=== PATIENT | male | born 1955 | race Caucasian/White ===

== ENCOUNTER 2017-09-10 13:15 | Inpatient (IN) | payer MEDICAID ==
[~2017-09-10] VITALS: Ht 157.5 cm; Wt 107.5 kg
[~2017-09-10 13:15] MED LIST: ACET-787 PO; BENA40TA PO; CARV12.5 PO; DIGO0.121 PO; FURO-572 PO; GABA600T1 PO; HUM SUBQ; KEP500 PO; LANTUS SC; NUCYNTA PO; TRAZ-289 PO; [UNRECOGNIZED DRUG - CODE] PO
--- NOTE | 2017-09-10 13:15 | NUR ---
PATIENT BIBA TO BED 02
[2017-09-10 13:17] VITALS: BP 113/71
--- NOTE | 2017-09-10 13:17 | NUR ---
62M BIBA FROM HOME C/O SHORTNESS OF BREATH X 2 WEEKS, WORSENING X TODAY; BL LUNG SOUNDS CLEAR, RR EVEN/UNLABORED, EQUAL RISE/FALL OF CHEST NOTED AT THIS TIME; PT SPEAKING IN FULL, CLEAR SENTENCES AT THIS TIME; PT C/O ABDOMINAL PAIN X 4 QUADRANTS, RADIATES TO LOWER BACK, PRESSURE, 9/10 X 3 WEEKS; ABDOMEN LARGE, FIRM, ACTIVE BOWEL SOUNDS X 4 QUADRANTS; PT C/O NAUSEA, BUT STATES NO VOMITING AT THIS TIME; PT C/O DIARRHEA X LAST SUNDAY, BUT STATES "IT STOPPED LAST NIGHT"; PT STATES " I'VE GAINED A LOT OF WEIGHT IN TWO WEEKS"; PT AA&OX4, SKIN IS WARM/DRY/INTACT AT THIS TIME; PT PLACED ON MONITOR, RESTING IN BED WITH HOB ELEVATED AND IN LOWEST POSITION; POSITIONED FOR COMFORT; ER MD MADE AWARE OF STATUS. WILL CONTINUE TO MONITOR.
--- NOTE | 2017-09-10 14:00 | NUR ---
XRAY AT BEDSIDE.
[2017-09-10 14:44] LABS: HEMATOCRIT 37.7 % (36-52); HEMOGLOBIN 12.5 g/dL (12.0-18.0); MEAN CORPUSCULAR HEMOGLOBIN 35 pg (27-31); MEAN CORPUSCULAR HGB CONC 33 g/dL (33-37); MEAN CORPUSCULAR VOLUME 105 fL (80-94); PLATELET COUNT (AUTO) 63 K/uL (140-450); RED CELL DISTRIBUTION WIDTH 14.3 % (11.6-13.7); WHITE BLOOD COUNT (AUTO) 3.3 K/uL (4.8-10.8)
[2017-09-10 15:00] LABS: ALBUMIN 2.8 g/dL (3.4-5.0); ANION GAP 11.3 (8-16); CARBON DIOXIDE 26.7 mmol/L (21-32); CREATININE 0.8 mg/dL (0.7-1.3); TOTAL BILIRUBIN 1.8 mg/dL (0.0-1.0)
[2017-09-10 15:15] LABS: LYMPHOCYTES % (MANUAL) 28 % (20-46); MONOCYTES % (MANUAL) 11 % (5-12)
--- NOTE | 2017-09-10 15:19 | NUR ---
PT APPEARS TO BE RESTING COMFORTABLY IN BED; RR EVEN/UNLABORED; POSITIONED FOR COMFORT; WILL CONTINUE TO MONITOR.
[2017-09-10] MEDS ORDERED: FUROSEMIDE 40 MG/4 ML VIAL IVP ONE (15:40)
[2017-09-10] MEDS ORDERED: MORPHINE SULFATE 4 MG/ML SYR IVP ONE (15:40)
[2017-09-10 15:47] LABS: PROTHROMBIN TIME 12.4 secs (10.8-13.4)
[2017-09-10] MEDS ORDERED: LYR75 PO (15:55)
[2017-09-10] MEDS ORDERED: SPIR25TA PO (15:55)
[2017-09-10] MEDS ORDERED: OMEP20TC12 PO (15:55)
[2017-09-10] MEDS ORDERED: ACETAMINOPHEN 325 MG TAB PO PRN (16:10)
[2017-09-10] MEDS ORDERED: ALBUTEROL SULFATE/IPRATROPIU 3 ML SOL IH PRN (16:10)
[2017-09-10] MEDS ORDERED: DEXTROSE 50% 50 ML SYR IVP PRN (16:25)
--- NOTE | 2017-09-10 16:43 | NUR ---
US AT BEDSIDE.
[2017-09-10 16:47] LABS: CHOL/HDL RATIO 2.3 (1-4.5); FREE T4 (FREE THYROXINE) 1.55 ng/dL (0.76-1.46); THYROID STIMULATING HORMONE 2.62 uIU/mL (0.34-3.74)
[2017-09-10] MEDS ORDERED: GABAPENTIN 600 MG PO SCH (17:00)
[2017-09-10] MEDS ORDERED: FUROSEMIDE 20 MG/2 ML VIAL IVP SCH (17:00)
--- NOTE | 2017-09-10 17:00 | NUR ---
Patient will be admitted to care of DR. NESBITT. Admited to TELEMETRY. Will go to room 119B. Belongings list completed. Report to NII HERNANDEZ AT BEDSIDE.
[2017-09-10] MEDS ORDERED: METOPROLOL SUCCINATE 50 MG TABER PO SCH (17:06)
[2017-09-10] MEDS ORDERED: GABAPENTIN 300 MG CAP PO SCH (17:08)
[2017-09-10 17:12] VITALS: BP 170/88
--- NOTE | 2017-09-10 17:12 | NUR ---
RECEIVED PATIENT FROM EMERGENCY ROOM NURSE. PATIENT IS ALERT AND ORIENTED X4. PATIENT SHOWS NO SIGNS OF RESPIRATORY DISTRESS OR RESPIRATORY DEPRESSION. PATIENT IS ON 2L VIA NC. PATIENT O2 SATURATION IS AT 96%. PATIENT BLOOD PRESSURE SYSTOLIC IS 170. WILL RECHECK AND NOTIFY DOCTOR. GAVE PATIENT CALL LIGHT AND PLACED BED IN LOWEST POSITION. APPROPRIATE SIGNS PLACED OUTSIDE PATIENTS DOOR AND WRISTBAND APPLIED. WILL CONTINUE TO MONITOR PATIENT.
--- NOTE | 2017-09-10 18:00 | NUR ---
PATIENT IS RESTING AT THIS TIME. NO SIGNS OF RESPIRATORY DISTRESS OR RESPIRATORY DEPRESSION. WILL CONTINUE TO MONITOR PATIENT.
[2017-09-10 18:03] LABS: APPEARANCE,URINE CLEAR (CLEAR); BILIRUBIN,URINE NEGATIVE (NEGATIVE); BLOOD, URINE NEGATIVE (NEGATIVE); COLOR,URINE YELLOW (YELLOW); LEUKOCYTE ESTERASE ,URINE NEGATIVE (NEGATIVE); NITRITE, URINE NEGATIVE (NEGATIVE); PH,URINE 5.5 (5.0-9.0); UGLUCOSE NEGATIVE (NEGATIVE)
[2017-09-10] MEDS ORDERED: SPIRONOLACTONE 50 MG TAB PO SCH (18:03)
[2017-09-10] MEDS ORDERED: FUROSEMIDE 40 MG TAB PO SCH (18:05)
[2017-09-10 18:10] LABS: BARBITURATE, URINE NEG. ng/ml (NEG <=200); BENZODIAZEPINE, URINE NEG. ng/mL (NEG <=200); CANNABINOID, URINE NEG. ng/mL (NEG <=50); COCAINE, URINE NEG. ng/mL (NEG <=300); OPIATE, URINE POS. ng/mL (NEG <=2000); PHENCYCLIDINE SCREEN,URINE NEG. ng/mL (NEG <=25)
[2017-09-10] MEDS ORDERED: ALBUTEROL SULFATE/IPRATROPIU 3 ML SOL IH SCH (19:00)
--- NOTE | 2017-09-10 19:15 | NUR ---
GAVE REPORT TO NIGHTSHIFT NURSE AT BEDSIDE. PATIENT IS IN STABLE CONDITION.
--- NOTE | 2017-09-10 19:18 | NUR ---
RECEIVED PT AWAKE ON BED, COMPLAINING OF ABDOMINAL PAIN RADIATING TO BACK, ABDOMEN DISTENDED BUT SOFT, PT REQUESTING FOR MORPHINE, OFFERED NORCO BUT PT SAID ITS NO HELPING WITH THE PAIN, VITAL SIGNS TAKEN, BP ELEVATED, NO SOB NOTED, DR MATIAS MADE AWARE OF PT REQUEST FOR PAIN MEDICATION AND ELEVATED BP, WILL SEE PT, PLAN OF CARE DISCUSSED, SAFETY MEASURES IN PLACE, CALL LIGHT WITHIN REACH.
[2017-09-10 20:00] VITALS: BP 172/92
[2017-09-10] MEDS ORDERED: MORPHINE SULFATE 2 MG/ML SYR ONE (20:14)
--- NOTE | 2017-09-10 20:20 | NUR ---
DR MATIAS TALKED TO PT, MEDICATED PRN WITH MORPHINE IVP X1 DOSE ORDERED, BLOOD SUGAR CHECKED WITH 157 RESULT, COVERAGE WILL BE GIVEN, VENOUS AND DOPPLER BLE ULTRASOUND BEING DONE AT BEDSIDE AT THIS TIME, ALL NEEDS ATTENDED.
[2017-09-10] MEDS: BLOOD GLUCOSE MONITORING 1 DEV DEV FS SCH (20:21)
[2017-09-10] MEDS ORDERED: SODIUM CHLORIDE 1 GM TAB PO SCH (21:00)
[2017-09-10] MEDS ORDERED: SPIRONOLACTONE 25 MG TAB PO SCH (21:00)
[2017-09-10] MEDS: traZODone 50 MG TAB PO SCH (21:19)
[2017-09-10] MEDS: CARVEDILOL 12.5 MG TAB PO SCH (21:19)
[2017-09-10] MEDS: levETIRAcetam 500 MG TAB PO SCH (21:19)
[2017-09-10] MEDS: INSULIN LISPRO SLIDING SCALE 100 UNITS/ML VIAL SUBQ PRN (21:24)
[2017-09-10] MEDS ORDERED: MORPHINE SULFATE 2 MG/ML SYR IVP SCH (21:30)
[2017-09-11] VITALS: BP 137/63
--- NOTE | 2017-09-11 | NUR ---
PT SLEEPING, EASILY AROUSABLE, VITAL SIGNS STABLE, DENIES PAIN AT THIS TIME, VOIDING FREELY PER URINAL, CONTINUE TO MONITOR CLOSELY.
[2017-09-11] MEDS: MORPHINE SULFATE 2 MG/ML SYR IVP PRN ×4 (02:16→23:10)
--- NOTE | 2017-09-11 02:18 | NUR ---
COMPLAINING OF ABDOMINAL PAIN, OFFERED NORCO BUT PT REFUSED SAYING 03/04 PAIN AND NORCO WILL NOT RELIEVE IT, TALKED TO DR MATIAS, MORPHINE IVP GIVEN X1 DOSE ORDERED, MONITORED CLOSELY.
[2017-09-11 04:00] VITALS: BP 142/70
--- NOTE | 2017-09-11 05:40 | NUR ---
AM LABS DRAWN, BLOOD SUGAR CHECKED WITH 92 RESULT, NO DISTRESS NOTED, MONITORED CLOSELY.
[2017-09-11 06:12] LABS: HEMATOCRIT 35.7 % (36-52); HEMOGLOBIN 11.9 g/dL (12.0-18.0); MEAN CORPUSCULAR HEMOGLOBIN 35 pg (27-31); MEAN CORPUSCULAR HGB CONC 33 g/dL (33-37); MEAN CORPUSCULAR VOLUME 105 fL (80-94); PLATELET COUNT (AUTO) 47 K/uL (140-450); RED BLOOD CELL COUNT(AUTO) 3.39 MIL/uL (4.20-6.10)
[2017-09-11 06:20] LABS: T3 UPTAKE 30 % (24-39)
[2017-09-11] MEDS ORDERED: NON-FORMULARY ITEM (Omeprazole (Omeprazole) 20 MG) PO SCH (06:30)
[2017-09-11] MEDS: BLOOD GLUCOSE MONITORING 1 DEV DEV FS SCH ×4 (06:33→20:47)
[2017-09-11] MEDS ORDERED: LACTULOSE 20 GM/30 ML UDC PO ONE (06:35)
--- NOTE | 2017-09-11 06:45 | NUR ---
DUE LACTULOSE GIVEN, MADE AWARE FOR ULTRASOUND OF ABDOMEN TODAY, INSTRUCTED TO HOLD BREAKFAST UNTIL ITS DONE, WANT SCD'S TO BE APPLIED LATER, WILL ENDORSE, MONITORED CLOSELY.
[2017-09-11 06:55] LABS: MAGNESIUM 1.2 mg/dL (1.8-2.4); PHOSPHORUS 3.3 mg/dL (2.5-4.9)
--- NOTE | 2017-09-11 07:12 | NUR ---
PT SLEEPING, NO SIGNS OF DISTRESS, REPORT GIVEN TO NII ANDERSON FOR CONTINUITY OF CARE.
--- NOTE | 2017-09-11 07:13 | NUR ---
RECEIVED REPORT FROM MOVIE WRITER NURSE NICOLLE AT BEDSIDE FOR CONTINUITY OF CARE. PT IS AWAKE AND ORIENTED. INTRODUCED SELF AND UPDATED BOARD. LUNG SOUNDS CLEAR ON AUSCULTATION, ON RA. NO SOB. O2 SAT 95%. SKIN INTACT. IV TO L WRIST 20G. SL. SITE INTACT. ABD IS DISTENDED. BOWEL SOUNDS PRESENT. PT STATED HE HAD A BM THE DAY BEFORE YESTERDAY. URINAL AT BEDSIDE. BED IN LOW POSITION, WHEELS, LOCKED, CALL LIGHT WITHIN REACH. WILL CONTINUE TO MONITOR.
[2017-09-11 07:17] LABS: ANION GAP 12.3 (8-16); CARBON DIOXIDE 25.8 mmol/L (21-32); CREATININE 0.8 mg/dL (0.7-1.3); POTASSIUM 4.1 mmol/L (3.5-5.1)
[2017-09-11 08:00] VITALS: BP 112/67
--- NOTE | 2017-09-11 08:46 | NUR ---
CM NOTE INITIAL REVIEW FAXED TO [facility] [phone] PH# [phone] AND TO [facility] [phone] MARCOS PH# [phone]
[2017-09-11 08:50] LABS: EOSINOPHILS % (MANUAL) 7 % (0-4); LYMPHOCYTES % (MANUAL) 25 % (20-46); MONOCYTES % (MANUAL) 11 % (5-12)
[2017-09-11] MEDS: HYDROcodone/APAP 10/325 MG 1 TAB TAB PO PRN ×2 (08:52→16:52)
[2017-09-11] MEDS ORDERED: DOCUSATE 100 MG/10 ML UDC GT SCH (09:00)
[2017-09-11] MEDS ORDERED: traZODone 50 MG TAB PO SCH (09:00)
[2017-09-11] MEDS ORDERED: BENAZEPRIL HCL 40 MG PO SCH (09:00)
[2017-09-11] MEDS: INSULIN LANTUS 100 UNITS/ML 10 ML VIAL SUBQ SCH (09:00)
[2017-09-11] MEDS ORDERED: NON-FORMULARY ITEM (Trazodone HCl 50 MG) PO SCH (09:00)
[2017-09-11] MEDS ORDERED: METOPROLOL SUCCINATE 50 MG TABER PO SCH (09:00)
[2017-09-11 09:39] LABS: HEPATITIS A ANTIBODY IGM Negative (Negative); HEPATITIS B CORE AB TOTAL Negative (Negative); HEPATITIS B SURFACE ANTIBODY Non Reactive (.); HEPATITIS B SURFACE ANTIGEN Negative (Negative)
[2017-09-11] MEDS: GABAPENTIN 300 MG CAP PO SCH ×3 (10:03→17:16)
[2017-09-11] MEDS: SPIRONOLACTONE 50 MG TAB PO SCH (10:03)
[2017-09-11] MEDS: CARVEDILOL 12.5 MG TAB PO SCH ×2 (10:04→20:31)
[2017-09-11] MEDS: PANTOPRAZOLE 40 MG TABEC PO SCH (10:04)
[2017-09-11] MEDS: levETIRAcetam 500 MG TAB PO SCH ×2 (10:04→20:31)
[2017-09-11] MEDS: BENAZEPRIL 20 MG TAB PO SCH (10:04)
[2017-09-11] MEDS: DIGOXIN 0.125 MG TAB PO SCH (10:05)
--- NOTE | 2017-09-11 10:11 | NUR ---
ADMINISTERED SCHEDULED MED. ADMINISTERED 1/2 DOSE OF BENAZEPRIL PILL WASTED. NON ADMINISTERED LANTUS D/T BLOOD GLUCOSE 92. PT TOLERATED MEDS WELL.
[2017-09-11] MEDS ORDERED: MAG SULF 2000 MG/WATER PREMIX 50 ML IV SCH (10:26)
[2017-09-11 12:00] VITALS: BP 101/62
[2017-09-11] MEDS ORDERED: LIDOCAINE MPF 1% - **ER/OR** 10 MG/ML VIAL INJ SCH (12:20)
[2017-09-11] MEDS ORDERED: LORazepam 2 MG/ML VIAL IVP SCH (12:20)
--- NOTE | 2017-09-11 12:49 | NUR ---
PT IS RESTING COMFORTABLY IN BED RIGHT NOW. AWARE FOR PLAN FOR PARACENTESIS TODAY. NO COMPLAINTS AT THIS TIME. WILL CONTINUE TO MONITOR.
--- NOTE | 2017-09-11 14:34 | NUR ---
09/11/2017 RD INITIAL ASSESSMENT COMPLETED PLEASE REFER TO NUTRITION ASSESSMENT UNDER CARE ACTIVITY FOR ESTIMATED NUTRITIONAL NEEDS. CONTINUE 60 GMS CCHO DIET MEDICALLY NECESSARY. ENCOURAGE INCREASED PO INTAKE TOLERATED PROVIDED NUTRITION EDUCATION ON CIRRHOSIS. RD TO FOLLOW-UP IN 3-5 DAYS PATIENT IS MODERATE RISK. EZEQUIEL BEAUCHAMP RD
[2017-09-11 16:00] VITALS: BP 131/67
[2017-09-11] MEDS ORDERED: FUROSEMIDE 40 MG TAB PO SCH (17:08)
--- NOTE | 2017-09-11 18:01 | NUR ---
PT STATED HE CANNOT TOLERATE FOOD ON DINNER TRAY. STATED HE CAN ONLY EAT FOOD LIKE MASHED POTATOES AND COTTAGE CHEESE. REPORTED TO DR. PRIEST. CHANGED DIET TO PUREE FOOD CONSISTENCY.
--- NOTE | 2017-09-11 19:15 | NUR ---
PT REPORT GIVEN TO NIGHTSHIFT NURSE AT BEDSIDE. NO S/S OF DISTRESS.
--- NOTE | 2017-09-11 19:16 | NUR ---
RECEIVED PT SLEEPING, EASILY AROUSABLE, DENIES ANY PAIN, ABDOMEN DISTENDED BUT SOFT, POSSIBLE PLAN FOR PARACENTESIS TOMORROW, PLAN OF CARE DISCUSSED, SAFETY MEASURES IN PLACE, CALL LIGHT WITHIN REACH.
[2017-09-11] MEDS: traZODone 50 MG TAB PO SCH (20:32)
--- NOTE | 2017-09-11 20:35 | NUR ---
PT SLEEPING, EASILY AROUSABLE, DENIES ANY PAIN, BLOOD SUGAR CHECKED WITH 178 RESULT, COVERAGE GIVEN, DUE MEDS GIVEN WITH EDUCATION PROVIDED, VOIDING FREELY USING THE URINAL, ALL NEEDS ATTENDED.
[2017-09-11] MEDS: INSULIN LISPRO SLIDING SCALE 100 UNITS/ML VIAL SUBQ PRN (20:36)
[2017-09-12] VITALS: BP 138/71
--- NOTE | 2017-09-12 | NUR ---
PT SLEEPING, AROUSABLE TO TOUCH, VITAL SIGNS STABLE, PAIN RELIEF OBTAINED FROM MORPHINE IVP GIVEN EARLIER, NO SOB NOTED, CONTINUE TO MONITOR CLOSELY.
--- NOTE | 2017-09-12 03:30 | NUR ---
ROUNDS MADE, PT SEEN SLEEPING, NO SIGNS OF DISTRESS, MONITORED CLOSELY.
[2017-09-12] MEDS: MORPHINE SULFATE 2 MG/ML SYR IVP PRN ×4 (05:08→23:32)
--- NOTE | 2017-09-12 05:10 | NUR ---
PT COMPLAINING OF ABDOMINAL PAIN, BP-145/92, HR-65, MEDICATED PRN WITH MORPHINE IVP, MONITORED CLOSELY.
--- NOTE | 2017-09-12 05:50 | NUR ---
BLOOD SUGAR CHECKED WITH 123 RESULT, NO COVERAGE NEEDED, NO DISTRESS NOTED, PT WENT BACK TO SLEEP, MONITORED CLOSELY.
[2017-09-12] MEDS: BLOOD GLUCOSE MONITORING 1 DEV DEV FS SCH ×4 (06:41→20:56)
[2017-09-12] MEDS: HYDROcodone/APAP 10/325 MG 1 TAB TAB PO PRN ×3 (07:15→21:25)
--- NOTE | 2017-09-12 07:28 | NUR ---
PT AWAKE, NO DISTRESS NOTED, REPORT GIVEN TO NII MOSHER FOR CONTINUITY OF CARE.
--- NOTE | 2017-09-12 07:29 | NUR ---
RECEIVED REPORT FROM LACROSSE PLAYER NURSE AT BEDSIDE FOR CONTINUITY OF CARE. PATIENT IN BED AWAKE. NO ACUTE DISTRESS NOTED. LEFT WRIST 20G.WILL CONT TO MONITOR.
[2017-09-12 07:32] LABS: ANION GAP 11.2 (8-16); CARBON DIOXIDE 27.9 mmol/L (21-32); CREATININE 0.8 mg/dL (0.7-1.3); POTASSIUM 4.1 mmol/L (3.5-5.1)
[2017-09-12 08:00] VITALS: BP 114/60
[2017-09-12 08:00] LABS: HEMATOCRIT 35.7 % (36-52); MEAN CORPUSCULAR HEMOGLOBIN 35 pg (27-31); MEAN CORPUSCULAR HGB CONC 34 g/dL (33-37); MEAN CORPUSCULAR VOLUME 105 fL (80-94); RED BLOOD CELL COUNT(AUTO) 3.41 MIL/uL (4.20-6.10); RED CELL DISTRIBUTION WIDTH 13.7 % (11.6-13.7); WHITE BLOOD COUNT (AUTO) 2.5 K/uL (4.8-10.8)
--- NOTE | 2017-09-12 08:00 | NUR ---
INITIAL ASSESSMENT PERFORMED. PT ALERT AND ABLE TO MAKE NEEDS KNOWN.NO ACUTE DISTRESS NOTED. RESP EVEN AND UNLABORED. LUNG SOUNDS CLEAR. BOWEL SOUNDS ACTIVE X4 QUADS. VSS. DENIES PAIN. CONT WITH LEFT WRIST 20G SL. PATENT AND INTACT. SKIN INTACT.DISCUSSED PLAN OF CARE WITH PATIENT. VERBALIZED UNDERSTANDING AND AGREEMENT. PATIENT WITH ROUND FIRM ABDOMEN. PATIENT VERBALIZED FEELING PRESSURE FROM FLUID. INFORMED PATIENT PARACENTESIS PENDING PLATELET COUNT TODAY. CALL LIGHT WITHIN REACH. WILL CONT TO MONITOR.
[2017-09-12 08:11] LABS: PLATELET COUNT (AUTO) 38 K/uL (140-450)
[2017-09-12] MEDS: INSULIN LANTUS 100 UNITS/ML 10 ML VIAL SUBQ SCH (09:00)
--- NOTE | 2017-09-12 09:01 | NUR ---
CM NOTE CONCURRENT REVIEW FAXED TO [facility] [phone] PH# [phone] AND TO [facility] [phone] MARCOS PH# [phone]
[2017-09-12] MEDS: SPIRONOLACTONE 50 MG TAB PO SCH (09:13)
[2017-09-12] MEDS: CARVEDILOL 12.5 MG TAB PO SCH ×2 (09:14→20:47)
[2017-09-12] MEDS: FUROSEMIDE 40 MG TAB PO SCH (09:14)
[2017-09-12] MEDS: levETIRAcetam 500 MG TAB PO SCH ×2 (09:14→20:47)
--- NOTE | 2017-09-12 09:14 | NUR ---
ADMINISTERED SCHEDULED MEDICATIONS ORDERED. HELD COLACE PER PATIENT REQUEST. PT VERBALIZED HE HAS BEEN HAVING DIARRHEA D/T OTHER MEDICATIONS BEING GIVEN. WILL CONT TO MONITOR PT.
[2017-09-12] MEDS: DIGOXIN 0.125 MG TAB PO SCH (09:15)
[2017-09-12] MEDS: GABAPENTIN 300 MG CAP PO SCH ×3 (09:15→14:28)
[2017-09-12] MEDS: BENAZEPRIL 20 MG TAB PO SCH (09:15)
[2017-09-12] MEDS: PANTOPRAZOLE 40 MG TABEC PO SCH (09:16)
[2017-09-12] MEDS: DOCUSATE 100 MG/10 ML UDC PO SCH (09:18)
--- NOTE | 2017-09-12 09:53 | NUR ---
ADMINISTERED MAG RIDER ORDERED. PATIENT TOLERATING WELL.WILL CONT TO MONITOR. VERIFIED DOSE.
[2017-09-12] MEDS ORDERED: MAG SULF 2000 MG/WATER PREMIX 100 ML IV SCH (10:00)
[2017-09-12 10:13] LABS: BASOPHILS % (MANUAL) 1 % (0-2); EOSINOPHILS % (MANUAL) 2 % (0-4); LYMPHOCYTES % (MANUAL) 28 % (20-46); MONOCYTES % (MANUAL) 10 % (5-12)
--- NOTE | 2017-09-12 11:06 | NUR ---
ADMINISTERED MORPHINE IVP ORDERED FOR SEVERE ABD PAIN/PRESSURE RELATED TO ASCITES.PT TOLERATED WELL. WILL CONT TO MONITOR PT.
[2017-09-12] MEDS ORDERED: LACTULOSE 20 GM/30 ML UDC PO SCH (11:16)
[2017-09-12] MEDS ORDERED: DEXAMETHASONE 4 MG TAB PO SCH ×2 (11:17→13:57)
--- NOTE | 2017-09-12 13:00 | NUR ---
PATIENT WITH WITH VISITOR AT BEDSIDE. LACTULOSE ADMINISTERED ORDERED. PT IN GOOD SPIRITS. CALL LIGHT WITHIN REACH WILL CONT TO MONITOR PT.
[2017-09-12] MEDS: INSULIN LISPRO SLIDING SCALE 100 UNITS/ML VIAL SUBQ PRN ×3 (13:14→21:13)
[2017-09-12] MEDS ORDERED: LIDOCAINE 1% 500 MG/50 ML VIAL INJ SCH (13:45)
[2017-09-12] MEDS ORDERED: LORazepam 2 MG/ML VIAL IVP SCH (13:45)
--- NOTE | 2017-09-12 14:00 | NUR ---
PARACENTESIS PERFORMED BY DR PRIEST AT BEDSIDE. PATIENT TOLERATED WELL. ATIVAN GIVEN PRIOR TO PROCEDURE. LIDOCAINE ALSO ADMINISTER BY DR PRIEST AT BEDSIDE. 4 CANISTERS DRAINED FROM PATIENT. CANISTERS TAKEN TO LAB FOR GLUCOSE, PROTEIN,LDH, AMYLASE, AND ALBUMIN FROM BODY FLUID. PT WITH DRY DRSG TO SITE. PATIENT VERBALIZED SOME RELIEF.
[2017-09-12 15:12] LABS: PROTHROMBIN TIME 12.8 secs (10.8-13.4)
[2017-09-12 16:00] VITALS: BP 171/75
--- NOTE | 2017-09-12 16:30 | NUR ---
PATIENT IN BED WITH EYES CLOSED. EASILY WOKEN. PATIENT ALERT AND ABLE TO VERBALIZE NEEDS. NO ACUTE DISTRESS NOTED. CALL LIGHT WITHIN REACH. WILL CONT TO MONITOR. VS GATHERED.
--- NOTE | 2017-09-12 17:16 | NUR ---
ADMINISTERED MORPHINE ORDERED PATIENT TOLERATED WELL. PATIENT IN BED RESTING AFTER PARACENTESIS. CALL LIGHT WITHIN REACH. WILL CONT TO MONITOR.
--- NOTE | 2017-09-12 19:16 | NUR ---
ENDORSED REPORT TO WAITANGI TRIBUNAL MEMBER NURSE AT BEDSIDE FOR CONTINUITY OF CARE. PATIENT STABLE.
--- NOTE | 2017-09-12 19:20 | NUR ---
RECEIVED REPORT FROM NIGHT RN. PT RESTING IN BED. AAOX4. NO S/S OF ACUTE DISTRESS. PT DENIES PAIN. IV SITE PATENT AND INTACT. CALL LIGHT WITHIN REACH. SAFETY MEASURES ENSURED. WILL CONTINUE TO MONITOR.
[2017-09-12 19:58] LABS: GLUCOSE,BODY FLUID 187 mg/dL
[2017-09-12 20:12] LABS: SPECIMENTYPE,BODY FLUID ASCITES
[2017-09-12 20:13] LABS: APPEARANCE,SPUN,BODY FLUID CLEAR (CLEAR); APPEARANCE,UNSPUN,BODY FLUID CLEAR (CLEAR); COLOR,BODY FLUID LT YELLOW (LT YELLOW); RBC, BODY FLUID 49 /cu. mm.; TOTAL VOLUME,BODY FLUID 4350 mL; WBC, BODY FLUID 4 /cu. mm.
[2017-09-12] MEDS: LACTULOSE 20 GM/30 ML UDC PO SCH (20:46)
[2017-09-12] MEDS: traZODone 50 MG TAB PO SCH (20:47)
[2017-09-12] MEDS ORDERED: SPIRONOLACTONE 50 MG TAB PO SCH (21:00)
[2017-09-12] MEDS ORDERED: FUROSEMIDE 40 MG TAB PO SCH (21:00)
[2017-09-12] MEDS ORDERED: HYDROcodone/APAP 10/325 MG 1 TAB TAB ONE (21:22)
--- NOTE | 2017-09-12 23:37 | NUR ---
PT STATES PAIN 8/10 TO LOWER BACK. MEDICATED ORDERED. NO S/S OF ACUTE DISTRESS. CALL LIGHT WITHIN REACH. SAFETY MEASURES ENSURED. WILL CONTINUE TO MONITOR.
[2017-09-13] VITALS: BP 138/72
[2017-09-13] MEDS: HYDROcodone/APAP 10/325 MG 1 TAB TAB PO PRN ×3 (05:12→17:49)
[2017-09-13] MEDS: BLOOD GLUCOSE MONITORING 1 DEV DEV FS SCH ×4 (05:20→21:32)
[2017-09-13] MEDS: INSULIN LISPRO SLIDING SCALE 100 UNITS/ML VIAL SUBQ PRN ×4 (05:38→21:35)
--- NOTE | 2017-09-13 07:27 | NUR ---
ENDORSED PLAN OF CARE TO DAY RN. PT REMAINS STABLE.
--- NOTE | 2017-09-13 07:30 | NUR ---
RECEIVED PT REPORT FROM CARPENTRY FOREMAN RN. PT AAOX4. NO S/S OF ACUTE DISTRESS. PT C/O BACK PAIN, WILL MEDICATE. IV SITE PATENT AND INTACT, SL. UPDATED BOARD, CALL LIGHT WITHIN REACH. SAFETY MEASURES ENSURED. WILL CONTINUE TO MONITOR.
[2017-09-13 07:46] LABS: BASOPHILS # (AUTO) 0.1 K/uL (0.00-0.22); BASOPHILS % (AUTO) 2.3 % (0.0-2.0); EOSINOPHILS % (AUTO) 0.7 % (0.0-4.0); HEMATOCRIT 36.8 % (36-52); HEMOGLOBIN 12.6 g/dL (12.0-18.0); LYMPHOCYTES # (AUTO) 0.2 K/uL (2.0-11.5); LYMPHOCYTES % (AUTO) 6.9 % (20.5-51.1); MEAN CORPUSCULAR HEMOGLOBIN 36 pg (27-31); MEAN CORPUSCULAR HGB CONC 34 g/dL (33-37); MEAN CORPUSCULAR VOLUME 103 fL (80-94); MONOCYTES # (AUTO) 0.1 K/uL (0.8-1.0); MONOCYTES % (AUTO) 1.8 % (1.7-9.3); NEUTROPHILS # (AUTO) 2.9 K/uL (1.8-7.7); NEUTROPHILS % (AUTO) 88.3 % (42.2-75.2); PLATELET COUNT (AUTO) 43 K/uL (140-450); RED BLOOD CELL COUNT(AUTO) 3.56 MIL/uL (4.20-6.10); RED CELL DISTRIBUTION WIDTH 13.6 % (11.6-13.7); WHITE BLOOD COUNT (AUTO) 3.3 K/uL (4.8-10.8)
[2017-09-13 08:00] VITALS: BP 143/79
[2017-09-13 08:10] LABS: ANION GAP 14.2 (8-16); CARBON DIOXIDE 25.2 mmol/L (21-32); CREATININE 0.9 mg/dL (0.7-1.3); POTASSIUM 4.4 mmol/L (3.5-5.1)
--- NOTE | 2017-09-13 08:50 | NUR ---
PT HAS CLEAR YELLOW FLUID LEAKING FROM PARACENTESIS PROCEDURE SITE ON THE LEFT ABD. NOTIFIED DR CEM DR ORDERED TO APPLIED NEW DRESSING AND APPLIED PRESSURE.
[2017-09-13] MEDS: GABAPENTIN 300 MG CAP PO SCH ×3 (08:53→16:29)
[2017-09-13] MEDS: BENAZEPRIL 20 MG TAB PO SCH (08:53)
[2017-09-13] MEDS: FUROSEMIDE 40 MG TAB PO SCH (08:54)
[2017-09-13] MEDS: levETIRAcetam 500 MG TAB PO SCH ×2 (08:54→20:23)
[2017-09-13] MEDS: DIGOXIN 0.125 MG TAB PO SCH (08:54)
[2017-09-13] MEDS: SPIRONOLACTONE 50 MG TAB PO SCH (08:55)
[2017-09-13] MEDS: PANTOPRAZOLE 40 MG TABEC PO SCH (08:55)
[2017-09-13] MEDS: CARVEDILOL 12.5 MG TAB PO SCH ×2 (08:56→20:22)
[2017-09-13] MEDS: LACTULOSE 20 GM/30 ML UDC PO SCH ×2 (08:59→20:22)
[2017-09-13] MEDS ORDERED: DEXAMETHASONE 4 MG TAB PO SCH (09:00)
[2017-09-13] MEDS: DOCUSATE 100 MG/10 ML UDC PO SCH (09:01)
[2017-09-13] MEDS: MORPHINE SULFATE 2 MG/ML SYR IVP PRN ×2 (09:09→16:01)
--- NOTE | 2017-09-13 09:15 | NUR ---
RINSED PT'S PARACENTESIS SITE ON THE LEFT ABD WITH NS AND PATTED DRY, COVERED WITH THREE 2X2 GAUZE AND COVERED WITH ISLAND DRESSING.
[2017-09-13] MEDS: INSULIN LANTUS 100 UNITS/ML 10 ML VIAL SUBQ SCH (09:18)
[2017-09-13 09:23] LABS: LDH,BODY FLUID 46 U/L
[2017-09-13] MEDS ORDERED: DEXAMETHASONE 0.5 MG/5 ML ORASYR PO SCH (10:05)
--- NOTE | 2017-09-13 10:20 | NUR ---
PT AMB WITH PHYSICAL THERAPY. PER PHYSICAL THERAPIST, PT IS ABLE TO AMB TO THE DOUBLE DOOR WITH ASSIST.
[2017-09-13] MEDS ORDERED: MAG SULF 2000 MG/WATER PREMIX 50 ML IV SCH (10:30)
--- NOTE | 2017-09-13 11:38 | NUR ---
CM NOTE CONCURRENT REVIEW FAXED TO [facility] [phone] PH# [phone] AND TO [facility] [phone] MARCOS PH# [phone]
[2017-09-13] MEDS: DEXAMETHASONE 4 MG TAB PO SCH (13:56)
[2017-09-13 14:02] LABS: PROTHROMBIN TIME 13.3 secs (10.8-13.4)
[2017-09-13 14:10] LABS: ALBUMIN 2.6 g/dL (3.4-5.0); TOTAL BILIRUBIN 2.3 mg/dL (0.0-1.0)
--- NOTE | 2017-09-13 14:19 | NUR ---
CM NOTE PER DAPHNIE PENDLETON, SHE SPOKE WITH PATIENT BEDSIDE AND PATIENT IS AGREEABLE TO SNF IF THE DOCTOR WILL SEE THAT HE NEEDS IT AND HE HAS NO PREFERENCE FOR A SPECIFIC SNF BUT WOULD APPRECIATE ONE THAT'S NOT FAR FROM HIS HOME. PER SONALI RODRÍGUEZ PH# [phone] IF THE PATIENT WILL NEED SNF TO SEND TO [facility] OR [facility]. PER SONALI RODRÍGUEZ FOR [facility] AUTH# [id number]. PER CHRIS OF [facility] PH# [phone] THEY ARE UNABLE TO TAKE PATIENT BECAUSE THEY ARE UNABLE TO TAKE CARE OF HIS NEEDS. PER JAVED OF [facility] PH# [phone] THEY CAN TAKE PATIENT IF PATIENT WILL NEED SNF UPON DISCHARGE.
--- NOTE | 2017-09-13 14:30 | NUR ---
CHANGED THE DRESSING ON THE LEFT ABD DUE TO SATURATION. RINSED WITH NS, PATTED DRY, COVERED WITH 2X2 GAUZE AND ABD PAD AND BIG ISLAND DRESSING, SECURED WITH TAPE.
[2017-09-13] MEDS ORDERED: LORazepam 0.5 MG TAB PO SCH (14:45)
[2017-09-13 16:00] VITALS: BP 144/74
--- NOTE | 2017-09-13 18:00 | NUR ---
DRESSING IS CLEAN AND PARTIALLY SATURATED. WILL CHANGE LATER.
--- NOTE | 2017-09-13 19:30 | NUR ---
ENDORSED PT TO AMERICAN INDIAN STUDIES PROFESSOR RN. PT IS IN STABLE CONDITION.
[2017-09-13] MEDS: traZODone 50 MG TAB PO SCH (20:22)
--- NOTE | 2017-09-13 20:24 | NUR ---
DUE MEDICATIONS GIVEN AT THIS TIME, PT TOLERATED WELL. NO S/S OF DISTRESS NOTED.
--- NOTE | 2017-09-13 22:30 | NUR ---
PT RESTING COMFORTABLY IN BED, NO S/S OF DISTRESS NOTED. RR EVEN/UNLABORED
[2017-09-14] VITALS: BP 126/72
--- NOTE | 2017-09-14 00:25 | NUR ---
LAB CALLED AND STATED THAT PT IS GRAM POSITIVE RODS, WILL NOTIFY DR. MATIAS
--- NOTE | 2017-09-14 00:30 | NUR ---
MADE DR. MATIAS AWARE OF GRAM POSITIVE RODS
[2017-09-14] MEDS: MORPHINE SULFATE 2 MG/ML SYR IVP PRN ×2 (01:57→08:13)
--- NOTE | 2017-09-14 02:30 | NUR ---
PT RESTING COMFORTABLY IN BED, NO S/S OF DISTRESS NOTED. RR EVEN/UNLABORED
[2017-09-14] MEDS: HYDROcodone/APAP 10/325 MG 1 TAB TAB PO PRN ×2 (03:32→09:51)
--- NOTE | 2017-09-14 03:52 | NUR ---
PT RESTING COMFORTABLY IN BED, NO S/S OF DISTRESS NOTED. RR EVEN/UNLABORED
[2017-09-14] MEDS: INSULIN LISPRO SLIDING SCALE 100 UNITS/ML VIAL SUBQ PRN (06:03)
[2017-09-14] MEDS: BLOOD GLUCOSE MONITORING 1 DEV DEV FS SCH ×3 (06:39→16:15)
--- NOTE | 2017-09-14 07:20 | NUR ---
REPORT GIVEN TO DAY SHIFT NURSE FOR CONTINUITY OF CARE, PT IN STABLE CONDITION.
--- NOTE | 2017-09-14 07:30 | NUR ---
RECEIVED PT REPORT FROM PANEL BEATER RN. PT AAOX4. NO S/S OF ACUTE DISTRESS. PT C/O BACK PAIN, WILL MEDICATE. IV SITE PATENT AND INTACT, SL. ABD PARACENTESIS SITE LU, STILL LEAKING CLEAR YELLOW FLUID, GOWN IS WET. WILL NOTIFY . UPDATED BOARD, CALL LIGHT WITHIN REACH. SAFETY MEASURES ENSURED. WILL CONTINUE TO MONITOR.
[2017-09-14 07:55] LABS: CARBON DIOXIDE 26.4 mmol/L (21-32); CREATININE 0.9 mg/dL (0.7-1.3); POTASSIUM 4.4 mmol/L (3.5-5.1)
[2017-09-14 08:00] VITALS: BP 153/78
[2017-09-14] MEDS: levETIRAcetam 500 MG TAB PO SCH (08:10)
--- NOTE | 2017-09-14 08:10 | NUR ---
MADE DR PRIEST AWARE OF THE PARACENTESIS SITE STILL LEAKING. DR ORDERED TO APPLY GAUZE DRESSING AND GIVE PT ONE WEEK OF DRESSING SUPPLY.
[2017-09-14] MEDS: CARVEDILOL 12.5 MG TAB PO SCH (08:11)
[2017-09-14] MEDS: PANTOPRAZOLE 40 MG TABEC PO SCH (08:11)
[2017-09-14] MEDS: GABAPENTIN 300 MG CAP PO SCH ×2 (08:11→13:26)
[2017-09-14] MEDS: DIGOXIN 0.125 MG TAB PO SCH (08:11)
[2017-09-14] MEDS: BENAZEPRIL 20 MG TAB PO SCH (08:12)
[2017-09-14] MEDS: DOCUSATE 100 MG/10 ML UDC PO SCH (08:12)
[2017-09-14] MEDS: LACTULOSE 20 GM/30 ML UDC PO SCH (08:12)
[2017-09-14] MEDS: INSULIN LANTUS 100 UNITS/ML 10 ML VIAL SUBQ SCH (08:17)
[2017-09-14 08:18] LABS: HEMATOCRIT 37.6 % (36-52); HEMOGLOBIN 12.4 g/dL (12.0-18.0); MEAN CORPUSCULAR HEMOGLOBIN 35 pg (27-31); MEAN CORPUSCULAR HGB CONC 33 g/dL (33-37); MEAN CORPUSCULAR VOLUME 104.9 fL (80-94); PLATELET COUNT (AUTO) 43 K/uL (140-450); RED BLOOD CELL COUNT(AUTO) 3.59 MIL/uL (4.20-6.10); RED CELL DISTRIBUTION WIDTH 13.4 % (11.6-13.7); WHITE BLOOD COUNT (AUTO) 3.7 K/uL (4.8-10.8)
--- NOTE | 2017-09-14 08:24 | NUR ---
RINSED THE PARACENTESIS SITE WITH NS AND PATTED DRY, DRESSING APPLIED.
--- NOTE | 2017-09-14 08:32 | NUR ---
CM NOTE CONCURRENT REVIEW FAXED TO [facility] [phone] PH# [phone] AND TO [facility] [phone] MARCOS PH# [phone] RECEIVED ORDER FOR HOME HEALTH. INFORMED [facility] FLOR RODRÍGUEZ AND FAXED HER THE ORDER. PER FLOR RODRÍGUEZ SHE WILL CALL BACK TO INFORM US WHICH HOME HEALTH THEY HAVE SET UP FOR PATIENT.
[2017-09-14 08:43] LABS: LYMPHOCYTES % (MANUAL) 7 % (20-46); MONOCYTES % (MANUAL) 5 % (5-12)
[2017-09-14 08:44] LABS: EOSINOPHILS % (MANUAL) 1 % (0-4)
[2017-09-14] MEDS ORDERED: FUROSEMIDE 40 MG TAB PO SCH (09:00)
[2017-09-14] MEDS ORDERED: SPIRONOLACTONE 50 MG TAB PO SCH (09:00)
--- NOTE | 2017-09-14 09:51 | NUR ---
PT RECEIVED SPONGE BATH. BED LINENS CHANGED.
[2017-09-14] MEDS ORDERED: GABA-638 PO (10:31)
[2017-09-14] MEDS ORDERED: SPIR50TA PO (10:31)
[2017-09-14] MEDS ORDERED: MAGN241.1 PO (10:31)
[2017-09-14] MEDS ORDERED: LACT10SO11 PO (10:31)
[2017-09-14] MEDS ORDERED: FURO40TA9 PO (10:31)
[2017-09-14] MEDS ORDERED: DEC4 PO (10:31)
--- NOTE | 2017-09-14 10:37 | NUR ---
CM NOTE PER SONALI RODRÍGUEZ PH# [phone], PATIENT IS SET UP WITH [facility] PH# [phone]. PER ENEDELIA OF [facility] PH# [phone], THEY ARE ACCEPTING THE PATIENT AND THEY WILL SEE PATIENT IN THE NEXT 24 TO 48 HOURS POST DISCHARGE. ENEDELIA OF [facility] AWARE OF THE PLAN TO DISCHARGE PATIENT TODAY. KAREN BALES AWARE. Addendum: 09/14/17 at 1134 by Hui Davalos CM [facility] IS MADE AWARE THAT PATIENT IS NOT GOING TO SNF
[2017-09-14] MEDS: DEXAMETHASONE 4 MG TAB PO SCH (13:25)
--- NOTE | 2017-09-14 14:00 | NUR ---
DRESSING CHANGED. PIC TAKEN. NO S/S OF ACUTE DISTRESS AND NO C/O PAIN.
--- NOTE | 2017-09-14 14:00 | NUR ---
MADE PT AWARE OF [facility] HAS BEEN ARRANGED FOR NURSING EVAL AND PHYSICAL THERAPY, PHONE NUMBER PROVIDED TO PT IN CASE HE NEEDS TO CALL.
--- NOTE | 2017-09-14 14:00 | NUR ---
PT NOTES PT tx attempted x 3 today, other therapist attempted first time, but patient refused d/t pain, 2nd attempt patient on phone call, and 3rd attempt by this therapist patient refused d/t being d/c home shortly. Nursing aware.
--- NOTE | 2017-09-14 14:10 | NUR ---
PT DENIES NAUSEA, VOMITING AND PAIN AT THIS TIME.
--- NOTE | 2017-09-14 14:30 | NUR ---
PT WAS DISCHARGED PER MD ORDER. DISCHARGE INSTRUCTION AND MEDICATION TEACHING GIVEN. MADE PT AWARE OF HIS SCHEDULED MD APPOINTMENT. DIET TEACHING GIVEN, ENCOURAGE PROTEIN INTAKE 1.5G/KG/DAY. PT VERBALIZED UNDERSTANDING. RX PROVIDED. MADE PT AWARE OF HIS MEDICATION DUE TIME. AND ENCOURAGE PT TO GO TO PHARMACY RIGHT AFTER DISCHARGE. IV CATH REMOVED, TIP INTACT, PRESSURE APPLIED. PT LEFT IN STABLE CONDITION AND WITH ALL HIS BELONGINGS. PT WAS WHEELED OUT BY JOSE M.
== END 2017-09-14 15:00 | disposition home health service (06) | DRG 279 ==
LOC: MED 13:15 → MTU 16:14
PROVIDERS: ADMIT Student in an Organized Health Care Education/Training Program; ATTEND Student in an Organized Health Care Education/Training Program
PROC: 0W9G3ZZ Drainage of Peritoneal Cavity, Percutaneous Approach (ICD-10-PCS; principal; 2017-09-12)
DX: K72.00 Acute and subacute hepatic failure without coma (principal); I50.43 Acute on chronic combined systolic (congestive) and diastolic (congestive) heart failure; E43 Unspecified severe protein-calorie malnutrition; D69.3 Immune thrombocytopenic purpura; E11.40 Type 2 diabetes mellitus with diabetic neuropathy, unspecified; D68.59 Other primary thrombophilia; E87.1 Hypo-osmolality and hyponatremia; Z68.41 Body mass index [BMI] 40.0-44.9, adult; I11.0 Hypertensive heart disease with heart failure; Z60.2 Problems related to living alone; D72.819 Decreased white blood cell count, unspecified; E66.9 Obesity, unspecified; G40.909 Epilepsy, unspecified, not intractable, without status epilepticus; G47.00 Insomnia, unspecified; Z83.3 Family history of diabetes mellitus; Z82.49 Family history of ischemic heart disease and other diseases of the circulatory system; Z79.4 Long term (current) use of insulin
CPT/HCPCS: 36415; 71045; 76700; 76705; 80048; 80053; 80305; 81003; 82040; 82140; 82150; 82247; 82945; 82948; 83036; 83615; 83690; 83735; 83880; 84100; 84157; 84439; 84443; 84479; 84484; 85025; 85610; 85730; 86704; 86706; 86708; 86709; 86803; 87070; 87075; 87081; 87205; 87340; 89051; 93005; 93925; 93970; 96374; 96375; 97110; 97116; 97140; 97530; 99285; J1815; J1940; J2001; J2060; J2270; J3475; J7030; J7060; J7620; Q0092